=== PATIENT | male | born 1935 | race Hispanic/Latino ===

== ENCOUNTER 2018-01-16 11:29 | Outpatient (RCR) | payer MEDICARE ==
[~2018-01-16 11:29] MED LIST: GABAPENTIN100 MG PO; LEVETIRACETAM250 MG PO; METOPROLOL SUCC25 MG PO; TAMSULOSIN HCL0.4 MG PO
== END 2018-02-07 ==
LOC: ST 11:29
PROVIDERS: ATTEND Internal Medicine
DX: R49.9 Unspecified voice and resonance disorder (principal)
CPT/HCPCS: 92507; 92524; 97139; G9171; G9172

== ENCOUNTER → 2018-12-09 | Day surgery (SDC) | payer MEDICARE ==
[~2018-12-09] MED LIST changes: +FENTANYL CITRATE/PF 100MCG/2 ML INJ ONE; +LIDOCAINE HCL 2% LOCAL INJ 5 ML SDV VIAL INJ ONE; +PROPOFOL IV EMULSION 10 MG/ML 50 ML VIAL ONE; +SIMETHICONE 40 MG/0.6 ML BTL ONE
--- OUTSIDE RECORDS SUMMARY | 2018-12-09 05:16 | XMS REPORT ---
Demographics Address [address] [place] [address] Preferred Language Unknown Marital Status Unknown Rastafari Affiliation Unknown Race Unknown Ethnic Group Unknown Author Author [facility] Address Unknown Phone Unavailable Care Team Providers Care Woodworking [employer] Name Role Phone Unavailable Unavailable Problems This patient has no known problems. Allergies, Adverse Reactions, Alerts This patient has no known allergies or adverse reactions. Medications This patient has no known medications. Encounters Start Date/Time End Date/Time Encounter Type Admission Type Attending [facility] Care Facility Care Department Encounter ID 2018-06-16 07:30:49 Outpatient [id number] 2018-09-15 09:05:00 2018-09-15 09:05:00 Outpatient [id number] 2018-07-25 13:02:00 2018-07-25 13:02:00 Emergency E [id number]
[2018-12-09 08:00] VITALS: BP 107/58
== END | disposition home or self-care (01) ==
LOC: OR 05:13
PROVIDERS: ATTEND Internal Medicine Gastroenterology
DX: K29.70 Gastritis, unspecified, without bleeding (principal); K29.80 Duodenitis without bleeding; K20.9 Esophagitis, unspecified; K21.9 Gastro-esophageal reflux disease without esophagitis; K44.9 Diaphragmatic hernia without obstruction or gangrene; R19.7 Diarrhea, unspecified; R63.4 Abnormal weight loss; I25.10 Atherosclerotic heart disease of native coronary artery without angina pectoris; I10 Essential (primary) hypertension; N40.0 Benign prostatic hyperplasia without lower urinary tract symptoms; Z88.1 Allergy status to other antibiotic agents; Z01.810 Encounter for preprocedural cardiovascular examination; Z80.0 Family history of malignant neoplasm of digestive organs
CPT/HCPCS: 43239; 93005; J2001; J2704; J3010

== ENCOUNTER → 2019-05-07 | Outpatient (CLI) | payer OTHER, MEDICARE ==
[~2019-05-07] MED LIST changes: -FENTANYL CITRATE/PF 100MCG/2 ML INJ ONE; +IOPAMIDOL 370 MG/ML 200 ML INFUS..BTL INJ ONE; -LIDOCAINE HCL 2% LOCAL INJ 5 ML SDV VIAL INJ ONE; -PROPOFOL IV EMULSION 10 MG/ML 50 ML VIAL ONE; -SIMETHICONE 40 MG/0.6 ML BTL ONE; +SODIUM CHLORIDE 0.9% 500ML 500 ML ONE; +SODIUM CHLORIDE 0.9% 50ML 50 ML ONE
[2019-05-07 17:29] LABS: CREATININE, SERUM 1.31 mg/dL (0.72-1.25)
--- NOTE | 2019-05-07 19:07 | Diagnostic Imaging Report ---
EXAMINATION: CT of the abdomen with contrast. TECHNIQUE: Spiral CT images of the abdomen were performed from the lung bases to the iliac crests after the intravenous administration of 100 cc of Omnipaque 370 and the oral administration of water. Coronal and sagittal reformatted images were obtained. COMPARISON: None. CLINICAL HISTORY:Abdominal pain, possible abdominal aortic aneurysm DISCUSSION: LOWER THORAX:Linear opacities in bilateral lower lobes likely reflect subsegmental atelectasis or scarring. Atherosclerotic calcification of the thoracic aorta, aortic valves, coronary arteries and mitral annulus. Tortuous distal thoracic aorta, without aneurysmal dilation. HEPATOBILIARY: Ill-defined 0.7 x 0.7 x 1.0 cm hypodense lesion in hepatic segment V (series 6, image 23), which does not measure simple fluid. Calcified granulomas in hepatic segment VIII and II (series 6, image 19 and 11). 4 mm hypodense lesion in hepatic segment IV at the dome (series 6, image 12), which is too small to characterize but statistically likely represents a small cyst. Mild dilation of the common bile duct, which measures approximately 8-9 mm at the emily hepatis. Mild central intrahepatic biliary ductal dilation. No intraluminal filling defects. GALLBLADDER: Cholecystectomy clips. SPLEEN: No splenomegaly. PANCREAS: No focal masses or ductal dilatation. ADRENALS: No adrenal nodules. KIDNEYS/URETERS: No hydronephrosis, stones, or solid mass lesions. 1.1 cm hypodense lesion in the left inferior pole (coronal image 47), which does not measure simple fluid. PERITONEUM/RETROPERITONEUM: No free air or fluid. LYMPH NODES: No intra-abdominal or retroperitoneal adenopathy. VESSELS: The celiac trunk,superior and inferior mesenteric and bilateral renal arteries are patent The portal, superior mesenteric and splenic veins are patent. Marked atherosclerotic calcification of the abdominal aorta, aortic branches and proximal iliac vessels. 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 No dissection flap is identified. GI TRACT: No bowel dilation or evidence of obstruction in the visualized bowel. The stomach is unremarkable. BONES AND SOFT TISSUE: No aggressive lytic lesions. Multilevel degenerated discs in the lower thoracic and lumbar spine. Soft tissues are grossly unremarkable. IMPRESSION: 1. 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 No dissection flap, contrast extravasation or periaortic hematoma. 2. Marked atherosclerotic calcification of the abdominal aorta, aortic branches and proximal iliac vessels. Additional atherosclerotic calcification is noted in the thoracic aorta, aortic valves, coronary arteries and mitral annulus. 3. Indeterminate 1.0 cm hypodense lesion in hepatic segment V and 1.1 cm hypodense lesion in the left renal inferior pole. Recommend contrast enhanced MRI abdomen with liver mass protocol and renal ultrasound for further evaluation. 4. Mild central intrahepatic periductal dilation and mild dilation of the common bile duct, likely reflect postcholecystectomy status. Signed by: Dr. Sanjeev Roth M.D. on 05/07/2019 7:04 PM
--- NOTE | 2019-05-07 20:52 | Diagnostic Imaging Report ---
History:Dizziness Comparison studies:None Technique: Axial images were obtained from the skull base to the vertex. Coronal and sagittal images reconstructed from the axial data. Intravenous contrast: None Dose modulation, iterative reconstruction, and/or weight based adjustment of the mA/kV was utilized to reduce the radiation dose to as low as reasonably achievable. Findings: Scalp/skull: No abnormalities. Extra-axial spaces: Retrovermian arachnoid cyst. No fluid collections. Brain sulci: Mildly prominent. Ventricles: Mild compensatory dilatation. No hydrocephalus. Parenchyma: Few hypodensities in the supratentorial white matter are small vessel ischemic changes. Cortical-based hypodensity in left parietal and occipital lobes lateral aspect with associated volume loss, related to infarct. No masses, hemorrhage, acute or chronic cortical vascular insults. Sellar/suprasellar region: No abnormalities. Craniocervical junction: Patent foramen magnum. No Chiari one malformation. Incidental findings: Atherosclerotic calcifications in the carotid siphons and vertebral arteries . Impression: No acute abnormalities. Chronic findings: 1. Mild generalized volume loss. 2. Mild supratentorial white matter small vessel ischemic changes. 3. Left parietal and occipital chronic infarct. Signed by: DR Matias Doyle M.D. on 05/07/2019 8:50 PM
== END ==
LOC: CT 16:09
PROVIDERS: ATTEND Family Medicine
DX: R51 Headache (principal); R42 Dizziness and giddiness; R10.9 Unspecified abdominal pain; I71.4 Abdominal aortic aneurysm, without rupture
CPT/HCPCS: 36415; 70450; 74160; 82565; 84520; 96360; J7040; Q9967

== ENCOUNTER → 2019-06-26 | Outpatient (CLI) | payer MEDICARE, OTHER ==
[~2019-06-26] MED LIST changes: +GADOBENATE DIMEGLUMINE 1 ML IV ONE; -IOPAMIDOL 370 MG/ML 200 ML INFUS..BTL INJ ONE; +SODIUM CHLORIDE 0.9% 100 ML ONE; -SODIUM CHLORIDE 0.9% 500ML 500 ML ONE; -SODIUM CHLORIDE 0.9% 50ML 50 ML ONE
[2019-06-26 11:16] LABS: CREATININE, SERUM 1.43 mg/dL (0.72-1.25)
--- NOTE | 2019-06-26 12:53 | Diagnostic Imaging Report ---
EXAM: Renal Ultrasound INDICATION: ^[id number] ^[id number] ^LIVER LESION/LT RENAL LESION COMPARISON: Abdomen CT of 05/07/2019 TECHNIQUE: Transverse and longitudinal images of the kidneys and bladder were obtained. FINDINGS: Right Kidney: Length: 8.9 cm Appearance: Normal echogenicity. Collecting system: No hydronephrosis Stones: None Cyst/Mass: None Left Kidney: Length: 8.8 cm Appearance: Normal echogenicity. Collecting system: No hydronephrosis Stones: None Cyst/Mass: Lower pole 1.0 x 0.9 x 1.3 cm anechoic cyst. Bladder: No mass or calculi. Left ureteral jet visualized. Prevoid volume estimate of 77 cc. The prostate measures 3.9 x 3.2 x 5.0 cm with volume estimate of 33 cc. IMPRESSION: No hydronephrosis or renal calculi. Left lower pole simple cyst. Signed by: Harrison Figueroa MD on 06/26/2019 12:48 PM
--- NOTE | 2019-06-26 15:34 | Diagnostic Imaging Report ---
MRI abdomen without and with contrast History: Indeterminate liver and left renal lesion seen on recent CT scan of abdomen and pelvis Comparison: CT abdomen and pelvis 05/07/2019 Technique: Multiplanar and multisequence MRI images of the abdomen were obtained without and subsequently following the administration of intravenous gadolinium. Findings: The heart is normal in size. A subcentimeter focus of enhancement within segment 4 of the liver is most suggestive of a flash fill hemangioma. A nonenhancing T2 hyperintense structure measuring 9 mm in size is seen within segment 5, consistent with a small cyst. There is no concerning liver mass. The central portal and hepatic veins appear patent. The gallbladder is surgically absent. Mild focal fatty infiltration of the liver along the falciform ligament. A 9 mm nonenhancing T2 hyperintense structure at the inferior pole of the left kidney is consistent with a simple cyst. No concerning renal mass or hydronephrosis is identified. Unremarkable appearance of the pancreas and spleen. The visualized bowel loops appear normal in caliber. No lymphadenopathy is appreciated within the abdomen. Impression: 1. No concerning liver or renal mass. 2. Subcentimeter simple appearing cysts within the liver and inferior left kidney. Signed by: Jimmie Ocampo MD on 06/26/2019 3:31 PM
== END ==
LOC: US 10:29
PROVIDERS: ATTEND Family Medicine
DX: K76.89 Other specified diseases of liver (principal); N28.9 Disorder of kidney and ureter, unspecified
CPT/HCPCS: 36415; 74183; 76770; 82565; 84520; J7050

== ENCOUNTER → 2019-11-17 | Day surgery (SDC) | payer MEDICARE, OTHER ==
[2019-11-12 09:19] LABS: BASOPHILS % 0.2 % (0.0-1.0); EOSINOPHILS # (AUTO) 0.1 (0.0-0.4); EOSINOPHILS % 1.6 % (0.0-6.0); HEMOGLOBIN 12.4 g/dL (14.0-18.0); LYMPHOCYTES # (AUTO) 1.4 (1.0-3.2); LYMPHOCYTES % 22.6 % (18.0-39.1); MEAN CORPUSCULAR HEMOGLOBIN 30.8 pg (28-32); MEAN CORPUSCULAR HGB CONC 32.6 g/dL (31-35); MEAN CORPUSCULAR VOLUME 94.3 fL (81-99); MONOCYTES # (AUTO) 0.7 (0.2-0.8); MONOCYTES % 10.6 % (4.4-11.3); NEUTROPHILS # (AUTO) 4.1 (2.1-6.9); NEUTROPHILS % 64.7 % (38.7-80.0); PLATELET COUNT 154 x10e3/uL (140-360); RED BLOOD COUNT 4.03 x10e6/uL (4.3-5.7); RED CELL DISTRIBUTION WIDTH 12.9 % (11.7-14.4)
[~2019-11-17] MED LIST changes: +CRESTOR10 MG PO; -GADOBENATE DIMEGLUMINE 1 ML IV ONE; +LIDOCAINE HCL 2% LOCAL INJ 5 ML SDV VIAL INJ ONE; +LOSARTAN POTAS100 MG PO; +METOCLOPRAMIDE HCL 10 MG/2ML VIAL ONE; +PANTOPRAZOLE 40 MG 10ML VIAL ONE; +PROPOFOL IV EMULSION 10 MG/ML 20 ML VIAL ONE; -SODIUM CHLORIDE 0.9% 100 ML ONE; +VITAMIN D350 MCG PO
[2019-11-17 09:50] VITALS: BP 87/52
--- NOTE | 2019-11-17 10:58 | Operative Report ---
DATE OF PROCEDURE: 11/17/2019 SURGEON: Ravi Engel MD PROCEDURE: EGD with biopsies. INDICATIONS FOR EGD: Upper abdominal pain, heartburn, acid reflux. MEDICATIONS: The patient was done under MAC, please see anesthesiologist's note. PROCEDURE IN DETAIL: With the patient in left lateral decubitus position, a flexible fiberoptic Olympus gastroscope was introduced into the esophagus under direct visualization without any difficulty. There was some patchy erythema noted in distal esophagus. The scope was then advanced with ease into the stomach, traversing a small sliding hiatal hernia. Mucosa overlying the antrum and the body revealed some patchy intense erythema and moderate edema; biopsies were obtained, sent to stain for H. pylori. There was a minute submucosal nodule noted in the upper body posterior wall, that was biopsied. Pylorus was of normal contour and shape, it was intubated with ease and the scope was advanced all the way to the second portion of the duodenum. Biopsies were obtained from the proximal second portion as well as the duodenal bulb to rule out sprue. There was some patchy erythema noted in the duodenal bulb mucosa. The scope was then withdrawn back into the stomach and retroflexed, mucosa overlying the fundus and cardia appeared to be within normal limits. The scope was then straightened out, it was subsequently withdrawn. The patient tolerated the procedure well. IMPRESSION: 1. Distal esophagitis, mild. 2. Small sliding hiatal hernia. 3. Gastritis, biopsied, biopsies sent to stain for H. pylori. 4. Submucosal nodule, proximal body posterior wall biopsied. 5. Rule out sprue. PLAN: 1. Follow up histology. 2. Initiate Protonix 40 mg one p.o. q.a.m. a.c. Ravi Engel MD [facility] [place]/MODL /[id number] cc: Raghavendra Bajwa DO
== END | disposition home or self-care (01) ==
LOC: OR 08:08
PROVIDERS: ATTEND Internal Medicine Gastroenterology
DX: K20.9 Esophagitis, unspecified (principal); K44.9 Diaphragmatic hernia without obstruction or gangrene; K29.70 Gastritis, unspecified, without bleeding; K21.9 Gastro-esophageal reflux disease without esophagitis; K59.09 Other constipation; I10 Essential (primary) hypertension; R63.4 Abnormal weight loss; Z88.8 Allergy status to other drugs, medicaments and biological substances; Z01.810 Encounter for preprocedural cardiovascular examination; Z01.812 Encounter for preprocedural laboratory examination; Z11.59 Encounter for screening for other viral diseases; I25.10 Atherosclerotic heart disease of native coronary artery without angina pectoris; Z95.1 Presence of aortocoronary bypass graft
CPT/HCPCS: 36415; 43239; 85025; 93005; C9113; J2001; J2704; J2765; U0002